=== PATIENT | male | born 1995 ===

== ENCOUNTER → 2021-12-24 07:50 | Outpatient (CLI) | payer OTHER, SELFPAY ==
--- NOTE | 2021-12-24 07:54 | DI.MRI.S_ITS ---
PROCEDURE: MR HEAD/BRAIN WO CON INDICATIONS: CLUSTER HEADACHE SYNDROME TECHNIQUE: Noncontrast axial T1 spin echo, axial T2 fast spin echo, sagittal and axial FLAIR, coronal T2 fast spin echo, axial gradient echo, axial diffusion and ADC through the brain. COMPARISON: None. FINDINGS: Image quality: Excellent. CSF Spaces: Basal cisterns are patent. No extra-axial fluid collections. Ventricles are normal in size and shape. Brain: No intracranial masses or hemorrhage. Preston/white matter interface is normal. Brainstem appears normal. Diffusion-weighted images demonstrate no acute ischemic insult. No chronic ischemic insults. Normal intravascular flow voids are present. Skull and face: Calvarium has normal marrow signal. Orbits appear normal. Sinuses: Small left maxillary sinus mucous retention cyst. Otherwise clear paranasal sinuses and mastoid air cells. IMPRESSION: Normal study. Dictated by: Joe Caro M.D. on 12/24/2021 at 9:54 Approved by: Joe Caro M.D. on 12/24/2021 at 10:02
--- NOTE | 2021-12-24 07:54 | DI.MRI.S_ITS ---
PROCEDURE: MR ANGIO HEAD WO CON INDICATIONS: CLUSTER HEADACHE SYNDROME TECHNIQUE: Noncontrast axial 3-D [id number] MR angiogram, with 3-dimensional maximum intensity projection (MIP) reformats of the internal carotid arteries and posterior circulation then performed. COMPARISON: None. FINDINGS: Image quality: Excellent. Anterior circulation: Intracranial internal carotid arteries demonstrate normal size and intraluminal flow signal. The flow within the paired anterior cerebral arteries is normal and symmetric. The flow within the middle cerebral arteries is normal and symmetric. The anterior communicating artery is seen. No stenoses, occlusions, or aneurysms. Posterior circulation: Visualized portions of the vertebral arteries demonstrate normal caliber, and join to form a normal appearing basilar artery. The flow within the posterior cerebral arteries is normal and symmetric. No stenoses, occlusions, or aneurysms. IMPRESSION: Normal MR angiogram the brain. Dictated by: Joe Caro M.D. on 12/24/2021 at 10:02 Approved by: Joe Caro M.D. on 12/24/2021 at 10:04
== END ==
PROVIDERS: PCP Student in an Organized Health Care Education/Training Program
DX: G44.009 Cluster headache syndrome, unspecified, not intractable (principal)
CPT/HCPCS: 70544; 70551